=== PATIENT | male | born 1975 | race African-American/Black ===

== ENCOUNTER 2019-02-22 09:55 | Inpatient (IN) ==
[2019-02-22 10:48] LABS: Basophils % 0.2 % (0.0-0.8); Eosinophils % 0.1 % (0.00-10.9); Hematocrit 43.3 VOL% (42.0-52.0); Hemoglobin 15.1 GM/DL (14.0-18.0); Immature Granulocytes % 0.2 %; Immature Granulocytes Absolute 0.03 #; Lymphocytes # 1.6 10*3/uL (1.4-4.0); Lymphocytes % 12.4 % (21.2-54.2); Mean Corpuscular HGB Conc 34.9 GM/DL (32-36); Mean Corpuscular Volume 95.2 FL (87-102); Mean Platelet Volume 10.9 FL (9.6-12.0); Monocytes % 4.3 % (1.7-12.7); Neutrophils % 82.8 % (38.7-73.9); Platelet Count 182 T/CUMM (130-400); Red Blood Count 4.55 MC/CUMM (3.8-5.5); Red Cell Distribution Width 12.7 % (9.3-17.3); White Blood Count 12.9 T/CUMM (4-12)
[2019-02-22 10:59] LABS: PT Patient Result 10.6 SECS (9.6-12.2); Partial Thromboplastin Time 24.9 SECS (20.8-36.0)
[2019-02-22 11:10] LABS: Alanine Aminotransferase 18 U/L (16-61); Albumin 3.4 G/DL (3.4-5.0); Alkaline Phosphatase 100 U/L (45-117); Aspartate Amino Transferase 14 U/L (0-37); Blood Urea Nitrogen 9 MG/DL (7-18); Calcium 8.7 MG/DL (8.5-10.1); Estimated Glom Filtration Rate 142 ML/MIN; Glucose 107 MG/DL (74-106); Osmolality,Calculated 279.3 MOS/KG (273-304); Total Protein 7.4 G/DL (6.4-8.3)
[2019-02-22 11:12] LABS: Risk Ratio 4.81; VLDL CHOLESTEROL 15.6 MG/DL
[2019-02-22 11:24] LABS: Lymphocytes 10 % (20-55); Metamyelocytes 2 %; Segmented Neutrophils 83 % (50-85); Total Cells Counted 100
[2019-02-22 11:25] LABS: Platelet Estimate Adequate
[2019-02-22 11:29] LABS: Target Cells Few; Tear Drop Cells Few
[2019-02-22 11:47] LABS: Apearance,Urine CLEAR (Clear); Bacteria,Urine Occasional /HPF (Few); Bilirubin,Urine Negative (Negative); Blood, Urine Negative (Negative); Glucose,Urine (UA) Negative (Negative); Ketones,Urine Negative (Negative); Mucus,Urine Moderate /LPF (Occasional); Nitrite,Urine Negative (Negative); Protein,Urine 30 MG/DL; RBC,Urine 7 /HPF (0-4); Squamous Epithelial Cell,Urine Occasional /HPF (0-10); Urine Color Yellow (Yellow); Urine Specific Gravity 1.026 (1.001-1.035); WBC,Urine 7 /HPF (0-6)
[2019-02-22] MEDS ORDERED: ONDANSETRON 4 MG/2 ML VIAL IV PRN (11:49)
[2019-02-22] MEDS ORDERED: PROMETHAZINE 25 MG/1 ML VIAL IM PRN (11:49)
[2019-02-22] MEDS ORDERED: ACETAMINOPHEN 325 MG TABLET PO PRN (11:49)
[2019-02-22] MEDS ORDERED: DOCUSATE SODIUM 100 MG CAPSULE PO PRN (11:49)
[2019-02-22] MEDS ORDERED: ENOXAPARIN 40 MG/0.4 ML SYRINGE SUBCUT SCH (12:00)
[2019-02-22 12:12] LABS: Barbiturates Screen,Urine Negative (Negative); Benzodiazepines Screen,Urine Negative (Negative); Cannabinoid Screen,Urine Negative (Negative); Opiate Screen,Urine Negative (Negative); Phencyclidine Screen,Urine Negative (Negative)
[2019-02-22 13:04] LABS: Risk Ratio 4.57; Thyroid Stimulating Hormone 0.381 uIU/ml (0.358-3.74)
[2019-02-22] MEDS: ASPIRIN EC 81 MG TABLET PO SCH (14:30)
[2019-02-22] MEDS: CLOPIDOGREL 75 MG TABLET PO SCH (14:30)
[2019-02-22] MEDS: SODIUM CHLORIDE 0.9% 1,000 ML IV SCH (14:30)
[2019-02-22] MEDS: PANTOPRAZOLE 40 MG TABLET PO SCH (14:31)
[2019-02-22] MEDS: ATORVASTATIN 40 MG TABLET PO SCH (20:23)
[2019-02-22] MEDS: NORTRIPTYLINE 25 MG CAPSULE PO SCH (20:24)
[2019-02-22] MEDS ORDERED: amLODIPine 5 MG TABLET PO SCH (21:00)
[2019-02-23 06:21] LABS: Basophils % 0.4 % (0.0-0.8); Eosinophils # 0.1 10*3/uL (0.0-0.87); Eosinophils % 1.1 % (0.00-10.9); Hematocrit 41.9 VOL% (42.0-52.0); Hemoglobin 14.4 GM/DL (14.0-18.0); Immature Granulocytes % 0.2 %; Immature Granulocytes Absolute 0.02 #; Lymphocytes # 2.4 10*3/uL (1.4-4.0); Lymphocytes % 25.5 % (21.2-54.2); Mean Corpuscular HGB Conc 34.4 GM/DL (32-36); Mean Corpuscular Volume 97.9 FL (87-102); Mean Platelet Volume 11.1 FL (9.6-12.0); Monocytes % 8.6 % (1.7-12.7); Neutrophils % 64.2 % (38.7-73.9); Platelet Count 174 T/CUMM (130-400); Red Blood Count 4.28 MC/CUMM (3.8-5.5); White Blood Count 9.4 T/CUMM (4-12)
[2019-02-23 06:50] LABS: Albumin 3.3 G/DL (3.4-5.0); Bilirubin,Total 0.6 MG/DL (0.2-1.0); Calcium 8.3 MG/DL (8.5-10.1); Osmolality,Calculated 283.8 MOS/KG (273-304); Total Protein 6.7 G/DL (6.4-8.3)
[2019-02-23 06:52] LABS: Hypochromasia 1+; Lymphocytes 21 % (20-55); Platelet Estimate Adequate; Segmented Neutrophils 70 % (50-85); Target Cells Slight; Total Cells Counted 100
[2019-02-23] MEDS: PANTOPRAZOLE 40 MG TABLET PO SCH (08:39)
[2019-02-23] MEDS: ASPIRIN EC 81 MG TABLET PO SCH (08:39)
[2019-02-23] MEDS: CLOPIDOGREL 75 MG TABLET PO SCH (08:39)
[2019-02-23] MEDS: SODIUM CHLORIDE 0.9% 1,000 ML IV SCH (08:42)
[2019-02-23] MEDS: amLODIPine 10 MG TABLET PO SCH (11:33)
[2019-02-23] MEDS ORDERED: ASPIRIN EC 325 MG TABLET PO SCH (16:06)
[2019-02-23] MEDS: ATORVASTATIN 40 MG TABLET PO SCH (20:26)
[2019-02-23] MEDS: NORTRIPTYLINE 25 MG CAPSULE PO SCH (20:26)
[2019-02-24 04:54] LABS: Basophils # 0.1 10*3/uL (0.0-0.2); Basophils % 0.5 % (0.0-0.8); Eosinophils # 0.1 10*3/uL (0.0-0.87); Eosinophils % 1.3 % (0.00-10.9); Hemoglobin 14.6 GM/DL (14.0-18.0); Immature Granulocytes % 0.3 %; Immature Granulocytes Absolute 0.03 #; Lymphocytes # 3.5 10*3/uL (1.4-4.0); Lymphocytes % 31.2 % (21.2-54.2); Mean Corpuscular HGB Conc 34.8 GM/DL (32-36); Mean Platelet Volume 11.2 FL (9.6-12.0); Monocytes % 9.5 % (1.7-12.7); Neutrophils % 57.2 % (38.7-73.9); Platelet Count 179 T/CUMM (130-400); Red Blood Count 4.33 MC/CUMM (3.8-5.5); Red Cell Distribution Width 12.9 % (9.3-17.3); White Blood Count 11.1 T/CUMM (4-12)
[2019-02-24 05:01] LABS: Calcium 8.5 MG/DL (8.5-10.1); Osmolality,Calculated 280.1 MOS/KG (273-304)
[2019-02-24] MEDS ORDERED: LISINOPRIL 10 MG TABLET PO SCH ×2 (09:00→21:00)
[2019-02-24] MEDS: CLOPIDOGREL 75 MG TABLET PO SCH (09:07)
[2019-02-24] MEDS: PANTOPRAZOLE 40 MG TABLET PO SCH (09:07)
[2019-02-24] MEDS: amLODIPine 10 MG TABLET PO SCH (09:08)
[2019-02-24 16:02] VITALS: BP 126/68
== END 2019-02-24 18:06 | DRG 65 ==
LOC: EDUNIT# → N.ED 09:55 → N.EDINP 11:49 → N.4E 12:57
PROVIDERS: ADMIT Hospitalist; ATTEND Hospitalist